=== PATIENT | male | born 1985 | race Caucasian/White ===

== ENCOUNTER 2020-05-20 16:55 | Emergency (ER) | payer OTHER, SELFPAY ==
[2020-05-20 17:24] VITALS: BP 154/87; PULSE 82; RESP 15; TEMP 37.2; O2SAT 99; BMI 30.2
[2020-05-20 18:14] LABS: Bacteria Urine None Seen
--- NOTE | 2020-05-20 18:27 | ED_ITS ---
HPI - Abdominal Pain General Chief Complaint: Abdominal Pain Stated Complaint: ABDOMINAL PAIN, FEELS LIKE ORGAN PAIN Time Seen by Provider: 05/20/20 17:53 Source: patient Mode of arrival: Ambulatory Limitations: no limitations History of Present Illness HPI narrative: 35-year-old male smoker with a history of testicular cancer, in remission for the past 15 years presents with a chief complaint of bilateral flank pain with episodes of sharp pain without obvious provocation or palliation and radiation around his sides. He has had no fever, chills, nausea or vomiting. He denies constipation or diarrhea. He denies dysuria, frequency, or urgency. He has been lifting some heavy objects at work but denies any obvious inciting event otherwise. He now complains of pain that seems to be a bit better with rest and worse with motion. MD complaint: abdominal pain and flank pain Onset (ago): day(s) Pain Consistency: intermittent Location: L flank and R flank Severity: moderate Quality: cramping and stabbing Radiation: LLQ, RLQ, L flank and R flank Relieving factors: rest Exacerbating factors: movement Associated symptoms: denies other symptoms Related Data Previous Rx's Medication Instructions Recorded amoxicillin 875 mg PO BID #20 tab 11/26/16 hydrocodone 5 mg-acetaminophen 325 1 tab PO BID PRN #10 tab 05/20/20 mg tablet ketorolac 10 mg PO Q6H PRN #14 tab 05/20/20 Allergies Allergy/AdvReac Type Severity Reaction Status Date / Time Sulfa (Sulfonamide Allergy Unknown Verified 05/20/20 17:24 Antibiotics) [SULFA (SULFONAMIDE ANTIBIOTICS)] Review of Systems Constitutional Constitutional: Denies chills, Denies fatigue, Denies fever(s), Denies frequent falls, Denies lethargy and Denies weakness Eyes Eyes: Denies change in vision, Denies eye discharge, Denies irritation and Denies loss of vision ENT Ears, Nose, Mouth, and Throat: Denies change in voice, Denies dizziness, Denies neck pain, Denies sore throat and Denies throat swelling Cardiovascular Cardiovascular: Denies chest pain, Denies irregular heart rhythm, Denies lightheadedness, Denies palpitations, Denies dyspnea, Denies dyspnea on exertion and Denies orthopnea Respiratory Respiratory: Denies cough, Denies dyspnea, Denies dyspnea on exertion and Denies wheezing Gastrointestinal Gastrointestinal: Reports abdominal pain, Denies change in bowel habits, Denies diarrhea, Denies nausea and Denies vomiting Genitourinary Genitourinary: Reports flank pain Genitourinary: Reports flank pain Musculoskeletal Musculoskeletal: Denies neck pain and Denies numbness Integumentary/Breasts Skin/Breast: Denies pruritus, Denies erythema, Denies rash and Denies wounds Neurologic Neurologic: Denies behavioral changes, Denies confusion, Denies dizziness, Denies frequent falls, Denies loss of vision, Denies numbness and Denies weakness Psychiatric Psychiatric: Denies anxiety, Denies behavioral changes, Denies confusion, Denies depression, Denies homicidal ideation and Denies suicidal ideation Endocrine Endocrine: Denies fatigue, Denies flushing and Denies palpitations Hematologic/Lymphatic Hematologic/Lymphatic: Denies easy bruising Allergic/Immunologic Allergic/Immunologic: Denies urticaria, Denies throat swelling and Denies wheezing Patient History Medical History Kidney stone Testicular cancer Social History Smoking Status: Current some day smoker alcohol intake: current substance use type: marijuana Smoking Status: Current some day smoker alcohol intake frequency: holidays/special occasions only Substance Use Type: marijuana Exam Narrative Exam Narrative: GENERAL: [35] year old patient appears stated age. Well- nourished, well-developed patient, in mild distress. Anxious, rocking back and forth a bit HEAD: Atraumatic. Normocephalic. EYES: Pupils equal round and reactive. Extraocular motions intact. No scleral icterus. No injection or drainage. ENT: Nose without bleeding, purulent drainage. Throat without erythema, tonsillar hypertrophy or exudate. Airway patent. NECK: Trachea midline. Non tender CARDIOVASCULAR: Regular rate and rhythm without murmurs, gallops, or rubs. RESPIRATORY: Clear to auscultation. Breath sounds equal bilaterally. No wheezes, rales, or rhonchi. GASTROINTESTINAL: Abdomen soft, mild tender to palpation on his sides, nondistended. No rebound, bowel sounds present in all 4 quadrants EXTREMITIES: No edema or joint tenderness. BACK: Nontender without deformity or crepitance. No flank tenderness. NEURO: AOx3. SKIN: No rash or erythema of visible areas Initial Vital Signs Initial Vital Signs: Vital Signs Temperature 99.0 F 05/20/20 17:24 Pulse Rate 82 05/20/20 17:24 Respiratory Rate 15 05/20/20 17:24 Blood Pressure 154/87 H 05/20/20 17:24 Pulse Oximetry 99 05/20/20 17:24 Course Orders Ordered: ED Orders 05/20/20 16:00 Urine Microscopic Stat 05/20/20 18:40 CT kidney ureter bladder (KUB) Stat 05/20/20 18:54 Basic Metabolic Panel Stat Complete Blood Count AUTO DIFF Stat Lipase Stat Discontinued Medications Sodium Chloride (Normal Saline 0.9%) 1,000 mls @ 1,000 mls/hr IV BOLUS ONE Stop: 05/20/20 19:38 Last Infusion: 05/20/20 19:55 Dose: 0 mls/hr Documented by: Admin: 05/20/20 19:03 Dose: 1,000 mls/hr Documented by: DEMETRIO Ketorolac Tromethamine (Ketorolac 60 Mg/2 Ml Vial) 15 mg IV NOW ONE Stop: 05/20/20 18:40 Last Admin: 05/20/20 19:02 Dose: 15 mg Documented by: DEMETRIO Vital Signs Vital signs: Vital Signs - 8 hr 05/20/20 17:24 05/20/20 19:55 Temperature 99.0 F 98.3 F Pulse Rate 82 51 L Respiratory Rate 15 16 Blood Pressure 154/87 H 127/70 Pulse Oximetry 99 99 MDM - Abdominal Pain Lab Data Result diagrams: 05/20/20 18:54 05/20/20 18:54 Labs: Lab Results 05/20/20 05/20/20 05/20/20 Range/Units 16:00 18:54 18:54 WBC 8.0 (4.5-11.0) X10^3/uL RBC 4.93 (4.5-5.9) X10^6/uL Hgb 15.2 (13.5-17.5) g/dL Hct 44.4 (41-53) % MCV 90.0 (80-100) fL MCH 30.8 (26-34) PG MCHC 34.3 (30-36) % RDW 13.2 (11.6-14.8) % Plt Count 209 (150-400) X10^3/uL Neut % (Auto) 55.9 (50-75) % Lymph % (Auto) 32.3 (25-40) % [place] % (Auto) 9.8 (3-14) % Eos % (Auto) 1.0 L (2-4) % Baso % (Auto) 1.0 (0-2) % Neut # (Auto) 4500 (5090-2773) /uL Lymph # (Auto) 2600 (5923-5236) /uL [place] # (Auto) 800 (0-900) /uL Eos # (Auto) 100 (0-450) /uL Baso # (Auto) 100 (0-100) /uL Sodium 139 (137-145) mmol/L Potassium 3.8 (3.4-5.1) mmol/L Chloride 108 H (98-107) mmol/L Carbon Dioxide 27 (22-32) mmol/L BUN 9 (9-20) mg/dL Creatinine 0.59 L (0.66-1.25) mg/dL Estimated GFR > 60.0 (>60) mL/min BUN/Creatinine Ratio 15.3 (6-22) Glucose 92 (70-100) mg/dL Calcium 9.5 (8.4-10.2) mg/dL Lipase 59 (23-300) U/L Urine RBC 0-1/hpf (0-5/HPF) Urine WBC 0-1/hpf (0-5/HPF) Urine Bacteria None seen (None) Ur Culture Indicated? Cult not indicated Point of care testing: Urine Dip Bedside Urine Glucose Negative Bedside Urine Bilirubin - Negative Bedside Urine Ketone - Negative Urine Specific [place] 1.015 Bedside Urine Occult Blood +/- Bedside Urine pH 6.0 Bedside Urine Protein - Negative Bedside Urine Urobilinogen - Negative Bedside Urine Nitrite - Negative Bedside Urine Leukocytes - Negative Esterase Imaging Data CT scan - abdomen/pelvis: Radiologist's Impression: Chon Barragan 35 M [address] [id number] Scan ReportSigned Patient: Chon Barragan LMR#: [id number]: 1985Acct:[id number]/Sex: 35 / MDate of Service: 05/20/20Loc: EDAccession Number: [id number] Procedure: CT kidney ureter bladder (KUB) Ordering Provider: Rito Perez D.O. PROCEDURE: CT KIDNEY URETER BLADDER (KUB) INDICATIONS: flank pain, worsening TECHNIQUE: Noncontrast 5 mm thick sections acquired from the diaphragms to the symphysis. 5 mm thick coronal and sagittal reformats were then performed. For radiation dose reduction, the following was used: automated exposure control, adjustment of mA and/or kV according to patient size. COMPARISON: [facility], CT, KIDNEY/ URETER/BLADDER, 02/09/2015, 16:33. FINDINGS: Image quality: Excellent. Lung bases: Lung bases are clear. Heart size is normal. Urinary system: Both kidneys are normal in size. 3 mm nonobstructing right inferior pole renal calcification.. No hydronephrosis or perinephric fat stranding. Both ureters appear non-dilated throughout their expected courses. Bladder wall thickness is normal; no calcified bladder stones. Other solid organs: Liver is mildly enlarged. Gallbladder is unremarkable . Pancreas is normal in contours. Spleen is normal in size. No adrenal nodules. Peritoneum and bowel: Unenhanced bowel loops demonstrate normal wall thickness and caliber. No free fluid or air. Appendix is within normal limits Nodes and vessels: No retroperitoneal or mesenteric adenopathy by size criteria. Scattered subcentimeter right lower quadrant lymph nodes are present. Aorta and inferior vena cava are normal in caliber. Abdominal wall: No ventral hernias. Pelvis: No free pelvic fluid. No inguinal hernias or adenopathy. Superficial varices are noted within the subcutaneous fat of the lower extremities. Bones: No suspicious bony lesions. No vertebral body compression fractures. IMPRESSION: 1. Nonobstructing inferior pole right renal calculus, new compared to 2014. 2. Appendix is normal with scattered right lower quadrant lymph nodes. Mesenteric adenitis cannot be excluded. Dictated by: Sulema aDmon M.D. on 05/20/2020 at 18:03 Approved by: Sulema Damon M.D. on 05/20/2020 at 18:06 [facility] Narrative Medical decision making narrative: Multiple etiologies for patient's symptoms considered including: [Passed kidney stones versus bowel obstruction versus musculoskeletal versus pyelonephritis versus appendicitis versus mesenteric adenitis] Patient's symptoms improved over duration of stay with above-stated therapies. Findings and discharge diagnosis discussed with patient/family followed by verbalization of understanding Return precautions discussed with patient/family whom verbalize understanding. Discharge Plan Departure Patient Disposition: Home Clinical Impression: Calculus of kidney, Acute mesenteric adenitis Back pain Qualifiers: Back pain location: back pain in other location Chronicity: acute Qualified Code(s): M54.9 - Dorsalgia, unspecified Instructions: DI for Mesenteric Adenitis-Adult Activity Restrictions/Additional Instructions: *You have been diagnosed with [abdominal and back pain, likely musculoskeletal with mesenteric adenitis] *What to do: *Take medications as directed: Sent to [facility] *Follow up with your primary care provider in 2-3 days, call for an appointment. Let them know you were seen in the Emergency Department and that we ask that you be seen in follow up *Return to ER if you should have any new, worsening or concerning symptoms, such as [increasing pain, fever, chills, nausea, vomiting or other bothersome symptoms] Prescriptions: New ketorolac 10 mg tablet 10 mg PO Q6H PRN (Reason: pain) Qty: 14 RF: 0 No Action hydrocodone-acetaminophen [[place]] 5-325 mg tablet 1 tab PO BID PRN (Reason: pain) Qty: 10 RF: 0 amoxicillin 875 MG tablet 875 mg PO BID Qty: 20 RF: 0
[2020-05-20 18:39] LABS: Culture Indicated Urine Cult Not Indicated; RBC Urine 0-1/HPF (0-5/HPF); WBC Urine 0-1/HPF (0-5/HPF)
--- NOTE | 2020-05-20 18:40 | DI.CT.S_ITS ---
PROCEDURE: CT KIDNEY URETER BLADDER (KUB) INDICATIONS: flank pain, worsening TECHNIQUE: Noncontrast 5 mm thick sections acquired from the diaphragms to the symphysis. 5 mm thick coronal and sagittal reformats were then performed. For radiation dose reduction, the following was used: automated exposure control, adjustment of mA and/or kV according to patient size. COMPARISON: [facility], CT, KIDNEY/ URETER/BLADDER, 02/09/2015, 16:33. FINDINGS: Image quality: Excellent. Lung bases: Lung bases are clear. Heart size is normal. Urinary system: Both kidneys are normal in size. 3 mm nonobstructing right inferior pole renal calcification.. No hydronephrosis or perinephric fat stranding. Both ureters appear non-dilated throughout their expected courses. Bladder wall thickness is normal; no calcified bladder stones. Other solid organs: Liver is mildly enlarged. Gallbladder is unremarkable . Pancreas is normal in contours. Spleen is normal in size. No adrenal nodules. Peritoneum and bowel: Unenhanced bowel loops demonstrate normal wall thickness and caliber. No free fluid or air. Appendix is within normal limits Nodes and vessels: No retroperitoneal or mesenteric adenopathy by size criteria. Scattered subcentimeter right lower quadrant lymph nodes are present. Aorta and inferior vena cava are normal in caliber. Abdominal wall: No ventral hernias. Pelvis: No free pelvic fluid. No inguinal hernias or adenopathy. Superficial varices are noted within the subcutaneous fat of the lower extremities. Bones: No suspicious bony lesions. No vertebral body compression fractures. IMPRESSION: 1. Nonobstructing inferior pole right renal calculus, new compared to 2014. 2. Appendix is normal with scattered right lower quadrant lymph nodes. Mesenteric adenitis cannot be excluded. Dictated by: Sulema Damon M.D. on 05/20/2020 at 18:03 Approved by: Sulema Damon M.D. on 05/20/2020 at 18:06
[2020-05-20] MEDS: KETOROLAC 60 MG/2 ML VIAL 15 MG IV (19:02)
[2020-05-20 19:03] LABS: Add Manual Diff / Slide Review NO; Basophils Absolute Auto 100 /uL (0-100); Eosinophils Absolute Auto 100 /uL (0-450); Hematocrit 44.4 % (41-53); Hemoglobin 15.2 g/dL (13.5-17.5); Lymphocytes Absolute Auto 2600 /uL (1100-4500); Lymphocytes Percent Auto 32.3 % (25-40); Mean Corpuscular HGB Conc 34.3 % (30-36); Mean Corpuscular Hemoglobin 30.8 PG (26-34); Monocytes Absolute Auto 800 /uL (0-900); Monocytes Percent Auto 9.8 % (3-14); Neutrophils Absolute Auto 4500 /uL (1500-7000); Neutrophils Percent Auto 55.9 % (50-75); Platelet Count 209 X10^3/uL (150-400); Red Blood Cell Count 4.93 X10^6/uL (4.5-5.9); Red Cell Distribution Width 13.2 % (11.6-14.8)
[2020-05-20] MEDS: SODIUM CHLORIDE 0.9% 1,000 ML 1000 ML IV (19:03)
[2020-05-20 19:19] LABS: BUN Creatinine Ratio 15.3 (6-22); Blood Urea Nitrogen 9 mg/dL (9-20); Calcium 9.5 mg/dL (8.4-10.2); Carbon Dioxide 27 mmol/L (22-32); Chloride 108 mmol/L (98-107); Estimated Glomerular Filt Rate > 60.0 mL/min (>60); Glucose 92 mg/dL (70-100); HEMOLYSIS < 15 (0-50); Lipase 59 U/L (23-300); Potassium 3.8 mmol/L (3.4-5.1); Sodium 139 mmol/L (137-145)
[2020-05-20 19:55] VITALS: BP 127/70; PULSE 51; RESP 16; TEMP 36.8; O2SAT 99
== END 2020-05-20 19:55 | disposition home or self-care (01) ==
PROVIDERS: Emergency Provider Emergency Medicine
DX: I88.0 Nonspecific mesenteric lymphadenitis (principal); N20.0 Calculus of kidney; M54.9 Dorsalgia, unspecified; Z85.47 Personal history of malignant neoplasm of testis
CPT/HCPCS: 74176; 80048; 81003; 81015; 83690; 85025; 96361; 96374; 99283; 99284; J1885

== ENCOUNTER 2020-05-30 07:04 | Emergency (ER) | payer OTHER, SELFPAY ==
[2020-05-30] VITALS (10 sets, daily range): BP systolic 114–132; BP diastolic 66–79; PULSE 63–77; RESP 12–23; TEMP 36.9; O2SAT 96–99; BMI 30.3
--- NOTE | 2020-05-30 07:28 | ED_ITS ---
HPI - Neuro Symptoms/Deficit General Chief Complaint: Neuro Symptoms/Deficit Stated Complaint: right side body numb when he woke up Time Seen by Provider: 05/30/20 07:15 Source: patient Mode of arrival: Ambulatory Limitations: no limitations History of Present Illness HPI Narrative: Patient is a 35-year-old male history of testicular cancer in severe anxiety presenting with right-sided body tingling. He says he woke up at 3:00 a.m. and was feeling fine he woke up again at 5:45 a.m. and noticed that he had numbness and tingling on his right side face arm and leg. He now no longer has the tingling on the right leg. He did not notice any weakness no speech difficulty no vision changes no headache chest pain palpitations or fevers. No prior history of CVA. Onset (ago): hour(s) Location: right face, right arm and right leg Severity: mild Related Data Previous Rx's Medication Instructions Recorded amoxicillin 875 mg PO BID #20 tab 11/26/16 hydrocodone 5 mg-acetaminophen 325 1 tab PO BID PRN #10 tab 05/20/20 mg tablet ketorolac 10 mg PO Q6H PRN #14 tab 05/20/20 Allergies Allergy/AdvReac Type Severity Reaction Status Date / Time Sulfa (Sulfonamide Allergy Unknown Verified 05/30/20 07:25 Antibiotics) [SULFA (SULFONAMIDE ANTIBIOTICS)] Review of Systems Review of Systems Narrative: GENERAL: Denies chills, fatigue, malaise, fever, sweats, travel HEENT: Denies sinus pain, ear pain, sore throat, difficulty swallowing, neck pain RESPIRATORY: Denies dyspnea, cough, wheezing, hemoptysis, sputum. CARDIOVASCULAR: Denies chest pain, palpitations, orthopnea, edema GASTROINTESTINAL: Denies nausea, vomiting, abdominal pain, diarrhea, constipation, melena. : Denies dysuria, frequency, incontinence, hematuria, urinary retention, flank pain. MUSCULOSKELETAL: Denies weakness, joint pain, or bony pain SKIN: No rash, no erythema, no pruritus NEUROLOGIC: See HPI PSYCHIATRIC: No concerning psychosocial issues. 12 point review of systems is negative except for those stated above and HPI Patient History Medical History Kidney stone Testicular cancer Social History (Reviewed 05/30/20 @ 07:30 by VINAYAK Thrasher Smoking Status: Current some day smoker alcohol intake: current substance use type: marijuana Smoking Status: Current some day smoker alcohol intake frequency: holidays/special occasions only Substance Use Type: marijuana Exam Narrative Exam Narrative: GENERAL: Well-appearing, well-nourished and in no acute distress. HEENT: Head atraumatic,EOMI, pupils reactive, face symmetric, moist mucous membranes CARDIOVASCULAR: Regular rate and rhythm without murmurs, rubs or gallops. RESPIRATORY: Breath sounds equal bilaterally, no wheezes rales or rhonchi. ABDOMEN: Soft, nontender. Normoactive bowel sounds all 4 quadrants. No guarding or rebound. EXTREMITIES: Normal range of motion, no clubbing or edema. Neurovascularly intact NEUROLOGICAL: Alert and oriented x4.Normal gait and speech. Cranial nerves II through XII grossly intact. Good gzukmi-wc-xbpr, good zste-[id number], strength equal bilaterally, no dysarthria or aphasia, sensation in tact to soft touch is decreased on right arm and right face, no visual changes, no facial droop SKIN: Warm, dry, no laceration, no petechiae, no rashes or lesions. Initial Vital Signs Initial Vital Signs: Vital Signs Temperature 98.4 F 05/30/20 07:05 Pulse Rate 76 05/30/20 07:05 Respiratory Rate 16 05/30/20 07:05 Blood Pressure 132/79 05/30/20 07:05 Pulse Oximetry 99 05/30/20 07:05 Scores NIH Stroke Scale Level of Conciousness: Alert, keenly responsive Ask month/age: Answers both questions correctly. Open/close eyes, close hand: Performs both tasks correctly Best gaze horizontal: Normal Visual wilson: No visual loss Facial palsy: Normal symetrical movement Left arm drift: No drift for full 10 sec Right arm drift: No drift for full 10 sec Left leg drift: No drift for full 5 sec Right leg drift: No drift for full 5 sec Limb ataxia: Absent Sensory on face/arms/legs: Mild to moderate sensory loss, can tell touch Best language: No aphasia, normal Dysarthria: Normal Extinction or inattention: No abnormality Total NIH Stroke scale score: 1 Course Orders Ordered: ED Orders 05/30/20 07:26 CT head/brain wo con Stat EKG-12 Lead Stat 05/30/20 07:27 CT angio head and neck Stat 05/30/20 07:41 Complete Blood Count AUTO DIFF Stat Comprehensive Metabolic Panel Stat Partial Thromboplastin Time Stat Prothrombin Time INR Stat Troponin & CK Cardiac Panel Stat 05/30/20 07:51 Urine Drug Screen, Rapid Stat Urine Microscopic Stat 05/30/20 08:53 MR stroke Stat Vital Signs Vital signs: Vital Signs - 8 hr 05/30/20 07:05 05/30/20 07:13 05/30/20 07:14 Temperature 98.4 F Pulse Rate 76 77 76 Respiratory Rate 16 12 22 Blood Pressure 132/79 132/79 Pulse Oximetry 99 99 99 05/30/20 07:30 05/30/20 07:31 05/30/20 08:00 Temperature Pulse Rate 75 74 75 Respiratory Rate 23 22 Blood Pressure 128/73 Pulse Oximetry 97 98 98 05/30/20 08:30 05/30/20 09:00 05/30/20 10:01 Temperature Pulse Rate 71 63 67 Respiratory Rate 16 14 Blood Pressure 114/66 114/70 Pulse Oximetry 98 97 98 05/30/20 10:30 Temperature Pulse Rate 69 Respiratory Rate 14 Blood Pressure Pulse Oximetry 96 MDM - Neuro Symptoms/Deficit Lab Data Attestation: I reviewed the patient's lab results. Result diagrams: 05/30/20 07:41 05/30/20 07:41 Labs: Lab Results 05/30/20 05/30/20 05/30/20 Range/Units 07:41 07:41 07:41 WBC 5.5 (4.5-11.0) X10^3/uL RBC 4.94 (4.5-5.9) X10^6/uL Hgb 15.2 (13.5-17.5) g/dL Hct 44.4 (41-53) % MCV 89.8 (80-100) fL MCH 30.8 (26-34) PG MCHC 34.3 (30-36) % RDW 13.3 (11.6-14.8) % Plt Count 200 (150-400) X10^3/uL Neut % (Auto) 63.3 (50-75) % Lymph % (Auto) 23.0 L (25-40) % Callahan % (Auto) 11.8 (3-14) % Eos % (Auto) 0.9 L (2-4) % Baso % (Auto) 1.0 (0-2) % Neut # (Auto) 3500 (7606-1436) /uL Lymph # (Auto) 1300 (6435-2100) /uL Callahan # (Auto) 600 (0-900) /uL Eos # (Auto) 100 (0-450) /uL Baso # (Auto) 100 (0-100) /uL PT 12.9 H (10.1-12.7) SECONDS INR 1.1 (0.9-1.3) APTT 37 H (26.4-36.2) SECONDS Sodium 137 (137-145) mmol/L Potassium 4.1 (3.4-5.1) mmol/L Chloride 104 (98-107) mmol/L Carbon Dioxide 22 (22-32) mmol/L BUN 12 (9-20) mg/dL Creatinine 0.72 (0.66-1.25) mg/dL Estimated GFR > 60.0 (>60) mL/min BUN/Creatinine Ratio 16.7 (6-22) Glucose 96 (70-100) mg/dL Calcium 9.4 (8.4-10.2) mg/dL Total Bilirubin 0.9 (0.2-1.3) mg/dL AST 28 (17-59) IU/L ALT 27 (<50) IU/L Alkaline Phosphatase 52 (38-126) U/L Total Creatine Kinase 165 (55-170) U/L CK-MB (CK-2) 0.85 (<2.37) ng/mL CK-MB (CK-2) Rel Index 0.5 L (1.5-5.0) % Troponin I < 0.012 (0.01-0.034) ng/mL Total Protein 7.7 (6.3-8.2) g/dL Albumin 4.8 (3.5-5.0) g/dL Globulin 2.9 (1.7-4.1) g/dL Albumin/Globulin Ratio 1.7 (1.0-2.8) Urine RBC (0-5/HPF) Urine WBC (0-5/HPF) Urine Bacteria (None) Urine Mucus (Negative) Ur Culture Indicated? U Opiates 300ng/mL cut (Negative) Ur Oxycodone Screen (Negative) Urine Methadone Screen (Negative) Ur Barbiturates Screen (Negative) U Tricyclic Antidepress (Negative) Ur Phencyclidine Scrn (Negative) Ur Amphetamines Screen (Negative) U Methamphetamines Scrn (Negative) Ur MDMA Scrn (Ecstasy) (Negative) U Benzodiazepines Scrn (Negative) Urine Cocaine Screen (Negative) U Marijuana (THC) Screen (Negative) 05/30/20 05/30/20 Range/Units 07:51 07:51 WBC (4.5-11.0) X10^3/uL RBC (4.5-5.9) X10^6/uL Hgb (13.5-17.5) g/dL Hct (41-53) % MCV (80-100) fL MCH (26-34) PG MCHC (30-36) % RDW (11.6-14.8) % Plt Count (150-400) X10^3/uL Neut % (Auto) (50-75) % Lymph % (Auto) (25-40) % Callahan % (Auto) (3-14) % Eos % (Auto) (2-4) % Baso % (Auto) (0-2) % Neut # (Auto) (8168-2105) /uL Lymph # (Auto) (0740-8326) /uL Callahan # (Auto) (0-900) /uL Eos # (Auto) (0-450) /uL Baso # (Auto) (0-100) /uL PT (10.1-12.7) SECONDS INR (0.9-1.3) APTT (26.4-36.2) SECONDS Sodium (137-145) mmol/L Potassium (3.4-5.1) mmol/L Chloride (98-107) mmol/L Carbon Dioxide (22-32) mmol/L BUN (9-20) mg/dL Creatinine (0.66-1.25) mg/dL Estimated GFR (>60) mL/min BUN/Creatinine Ratio (6-22) Glucose (70-100) mg/dL Calcium (8.4-10.2) mg/dL Total Bilirubin (0.2-1.3) mg/dL AST (17-59) IU/L ALT (<50) IU/L Alkaline Phosphatase (38-126) U/L Total Creatine Kinase (55-170) U/L CK-MB (CK-2) (<2.37) ng/mL CK-MB (CK-2) Rel Index (1.5-5.0) % Troponin I (0.01-0.034) ng/mL Total Protein (6.3-8.2) g/dL Albumin (3.5-5.0) g/dL Globulin (1.7-4.1) g/dL Albumin/Globulin Ratio (1.0-2.8) Urine RBC 5-10/hpf H (0-5/HPF) Urine WBC None seen (0-5/HPF) Urine Bacteria None seen (None) Urine Mucus 3+ H (Negative) Ur Culture Indicated? Cult not indicated U Opiates 300ng/mL cut Negative (Negative) Ur Oxycodone Screen Negative (Negative) Urine Methadone Screen Negative (Negative) Ur Barbiturates Screen Negative (Negative) U Tricyclic Antidepress Negative (Negative) Ur Phencyclidine Scrn Negative (Negative) Ur Amphetamines Screen Negative (Negative) U Methamphetamines Scrn Negative (Negative) Ur MDMA Scrn (Ecstasy) Negative (Negative) U Benzodiazepines Scrn Negative (Negative) Urine Cocaine Screen Negative (Negative) U Marijuana (THC) Screen Negative (Negative) Urine Dip Bedside Urine Glucose Negative Bedside Urine Bilirubin - Negative Bedside Urine Ketone +++ 80 Urine Specific [place] 1.030 Bedside Urine Occult Blood + Bedside Urine pH 6.0 Bedside Urine Protein +/- 15 Bedside Urine Urobilinogen - Negative Bedside Urine Nitrite - Negative Bedside Urine Leukocytes - Negative Esterase Imaging Data CT scan - head: Radiologist's Impression: PROCEDURE: CT HEAD/BRAIN WO CON INDICATIONS: tingling right side TECHNIQUE: Noncontrast 4.5 mm thick angled axial sections acquired from the foramen magnum to the vertex, with coronal and sagittal reformats. For radiation dose reduction, the following was used: automated exposure control, adjustment of mA and/or kV according to patient size. COMPARISON: None. FINDINGS: Image quality: Excellent. CSF spaces: Basal cisterns are patent. No extra-axial fluid collections. Ventricles are normal in size and shape. Brain: No midline shift. No intracranial masses or hemorrhage. Jerez-white matter interface is normal. Skull and face: Calvarium and visualized facial bones are intact, without suspicious lesions. Sinuses: Visualized sinuses and mastoids are clear. IMPRESSION: CT head without acute intracranial abnormalities. No mass or mass effect visualized. Dictated by: Donovan Nixon M.D. on 05/30/2020 at 8:08 CTA - brain/neck: Radiologist's Impression: PROCEDURE: CT ANGIO HEAD AND NECK INDICATIONS: tingling right side TECHNIQUE: After the administration of intravenous contrast, 1 mm thick sections acquired from the aortic arch through the [place]. Post-contrast 4.5 mm thick sections then re-acquired from the foramen magnum to the vertex. 3-dimensional erxeels-xidtjsdcz-lgqzbveatk (MIP) and/or volume rendering reformats were acquired of the central intracranial vasculature and neck separately. COMPARISON: [facility], CT, CT HEAD/BRAIN WO CON, 05/30/2020, 7:32. FINDINGS: Image quality: Excellent. BRAIN: CSF spaces: Ventricles are normal in size and shape. Basal cisterns are patent. No extra-axial fluid collections. Brain: No midline shift. No intracranial bleeds or masses. Jerez-white matter interface appears intact. Skull and face: Calvarium and facial bones appear intact, without suspicious lesions. Orbits appear normal. Sinuses: Sinuses and mastoids are clear. HEAD CT ANGIOGRAPHY: Anterior circulation: Intracranial internal carotid arteries are normal in size and flow. The flow within the paired anterior cerebral arteries is normal and symmetric. The flow within the middle cerebral arteries is normal and symmetric. The anterior communicating artery is seen. No aneurysms are seen. Posterior circulation: Visualized portions of the vertebral arteries demonstrate normal caliber, and join to form a normal appearing basilar artery. Left vertebral artery is dominant. The right vertebral is somewhat Flow within the posterior cerebral arteries is normal and symmetric. No aneurysms are seen. NECK CT ANGIOGRAPHY: Carotid system: The great vessels demonstrate a conventional anatomy as they arise from the aortic arch. The origins of the common carotid arteries appear patent. The common carotid arteries demonstrate normal caliber and courses. The bifurcation regions are both widely patent. The internal carotid arteries demonstrate normal calibers and courses. Posterior circulation: The origins of the vertebral arteries both appear widely patent. The right vertebral artery is somewhat diminutive. The left vertebral is The mo re superior extracranial portions of both vertebral arteries also demonstrate normal courses and calibers. They join to form a normal appearing basilar artery. Soft tissues: Visualized neck soft tissues demonstrate no suspicious abnormalities. Bones: No suspicious bony lesions. Visualized cervical spine appears normally aligned. IMPRESSION: 1. No evidence acute stroke, hemorrhage, mass. 2. Unremarkable CTA head. 3. Unremarkable CTA neck. Comment: Findings were discussed with Dr. Browne at the time of study dictation on 05/30/2020 0742 hours [place] time. Any quantitative measurements of stenosis were performed using NASCET criteria. Dictated by: Lm Saleh M.D. on 05/30/2020 at 7:36 MR stroke: Radiologist's Impression: PROCEDURE: MR STROKE Pre- and post-contrast brain MRI, non-contrast brain MR angiogram, pre- and postcontrast neck MR angiogram INDICATIONS: right arm tingling TECHNIQUE: Brain: Noncontrast axial T1 spin echo, axial T2 fast spin echo, sagittal and axial FLAIR, coronal T2 fast spin echo, axial gradient echo, axial diffusion and ADC through the brain. After the administration of contrast, axial 3D VIBE of the cranial vasculature and brain. Brain MRA: Non-contrast 3-D time of flight MR angiogram, with multiple hyvdhgw-qjqmfnzyh-elfalkmagk (MIP) reformats performed. Neck MRA: Axial and sagittal TruFISP through the neck. Coronal dynamic MR angiogram during administration of contrast in the arterial and venous phases, with 3- dimenstional fmgblea-xscvgjsqu-dgrvtplulk (MIP) reformats constructed from subtraction images. COMPARISON: None. FINDINGS: Image quality: Excellent. BRAIN: CSF spaces: Ventricles are normal in size and shape. Basal cisterns are patent. No extra-axial fluid collections. Brain: No intracranial bleeds or mass effects. Jerez-white matter interface is normal. Diffusion weighted images show no acute ischemic insults. Brainstem appears normal. Normal intravascular flow voids are present. No abnormal intracranial enhancement. Skull and face: Calvarial marrow signal is normal. Orbits appear normal. Sinuses: Sinuses and mastoids are clear. BRAIN MR ANGIOGRAM: Anterior circulation: Intracranial internal carotid arteries are normal in size and enhancement. The flow within the paired anterior cerebral arteries is normal and symmetric. The flow within the middle cerebral arteries is normal and symmetric. The anterior communicating artery is seen. No stenoses, occlusions, or aneurysms. Posterior circulation: The visualized portions of the vertebral arteries demonstrate normal caliber, and join to form a normal appearing basilar artery. The right vertebral artery is mildly diminutive. The left vertebral artery is The flow within the posterior cerebral arteries is normal and symmetric. No stenoses, occlusions, or aneurysms. NECK MR ANGIOGRAM: Carotids: Great vessels demonstrate a conventional anatomy as they arise from the aortic arch. The origins of the common carotid arteries appear patent. The calibers and courses of both common carotid arteries are normal. The bifurcation regions appear normal bilaterally. The internal carotid arteries demonstrate normal course and caliber. Posterior circulation: The origins of the vertebral arteries appear patent. More superior portions of both vertebral arteries demonstrate normal course and caliber, and join to form a normal appearing basilar artery. The right vertebral artery is somewhat diminutive. The left vertebral artery is dominant. Miscellaneous: Subclavian arteries appear patent. Pre-contrast images through the neck show no soft tissue abnormalities. IMPRESSION: BRAIN MRI: Unremarkable brain MRI. No evidence acute stroke, hemorrhage, or mass. Normal appearing brain parenchyma. BRAIN MR ANGIOGRAM: Unremarkable. No stenosis, aneurysm, or occlusion. NECK MR ANGIOGRAM: Unremarkable. Widely patent internal carotid arteries. Dictated by: Lm Saleh M.D. on 05/30/2020 at 9:26 ECG Data Attestation: I personally reviewed and interpreted this ECG as follows: Prior ECG tracings: available for review Interpretation: Normal sinus rhythm rate [address] changes T-wave inversions no priors to compare MDM Narrative Medical decision making narrative: Patient does have some right-sided soft touch sensation deficit. It does seem to be improving he therefore is not a candidate for tPA. His also not a candidate because of last known well was at 3:00 a.m. in the and he is outside the window. He has no large vessel occlusion symptoms or identified on CT a. patient MRI does not show any acute CVA. Unclear what is causing his symptoms he has severe anxiety. He was quite relieved after the noncontrast head CT did not show any tumors in his brain. He says that due to severe anxiety as he has not been able to sleep. He has a PCP appointment is but not until June. He overall is much relieved that nothing was found. Discussed with him return to ED if symptoms were to worsen Discharge Plan Departure Patient Disposition: Home Clinical Impression: Arm paresthesia, right Instructions: DI for Numbness/Tingling Activity Restrictions/Additional Instructions: *You have been diagnosed with paresthesias *What to do: At this time MRI CT scans are all overall reassuring no sign of stroke. Possible related to anxiety *Continue to take medications as directed *Follow up with your primary care provider in 2-3 days *Return to ER if you should have increasing weakness numbness tingling or any new, worsening or concerning symptoms Prescriptions: No Action hydrocodone-acetaminophen [[place]] 5-325 mg tablet 1 tab PO BID PRN (Reason: pain) Qty: 10 RF: 0 amoxicillin 875 MG tablet 875 mg PO BID Qty: 20 RF: 0 ketorolac 10 mg tablet 10 mg PO Q6H PRN (Reason: pain) Qty: 14 RF: 0 Referrals: López Rivera MD [Primary Care Provider] -
[2020-05-30 07:54] LABS: Add Manual Diff / Slide Review NO; Basophils Absolute Auto 100 /uL (0-100); Eosinophils Absolute Auto 100 /uL (0-450); Eosinophils Percent Auto 0.9 % (2-4); Hematocrit 44.4 % (41-53); Hemoglobin 15.2 g/dL (13.5-17.5); Lymphocytes Absolute Auto 1300 /uL (1100-4500); Mean Corpuscular HGB Conc 34.3 % (30-36); Mean Corpuscular Hemoglobin 30.8 PG (26-34); Mean Corpuscular Volume 89.8 fL (80-100); Monocytes Absolute Auto 600 /uL (0-900); Monocytes Percent Auto 11.8 % (3-14); Neutrophils Absolute Auto 3500 /uL (1500-7000); Neutrophils Percent Auto 63.3 % (50-75); Platelet Count 200 X10^3/uL (150-400); Red Blood Cell Count 4.94 X10^6/uL (4.5-5.9); Red Cell Distribution Width 13.3 % (11.6-14.8); White Blood Cell Count 5.5 X10^3/uL (4.5-11.0)
[2020-05-30 07:58] LABS: Bacteria Urine None Seen; WBC Urine None Seen (0-5/HPF)
[2020-05-30 08:02] LABS: INR 1.1 (0.9-1.3); Prothrombin Time 12.9 SECONDS (10.1-12.7)
[2020-05-30 08:05] LABS: Culture Indicated Urine Cult Not Indicated; Mucus Urine 3+ (Negative); RBC Urine 5-10/HPF (0-5/HPF)
[2020-05-30 08:05] LABS: PTT Partial Thromboplastin Tim 37 SECONDS (26.4-36.2)
[2020-05-30 08:06] LABS: Alanine Aminotransferase 27 IU/L (<50); Albumin 4.8 g/dL (3.5-5.0); Albumin Globulin Ratio 1.7 (1.0-2.8); Alkaline Phosphatase 52 U/L (38-126); Aspartate Aminotransferase 28 IU/L (17-59); BUN Creatinine Ratio 16.7 (6-22); Bilirubin Total 0.9 mg/dL (0.2-1.3); Blood Urea Nitrogen 12 mg/dL (9-20); Calcium 9.4 mg/dL (8.4-10.2); Carbon Dioxide 22 mmol/L (22-32); Chloride 104 mmol/L (98-107); Creatine Kinase 165 U/L (55-170); Estimated Glomerular Filt Rate > 60.0 mL/min (>60); Globulin 2.9 g/dL (1.7-4.1); Glucose 96 mg/dL (70-100); HEMOLYSIS < 15 (0-50); Potassium 4.1 mmol/L (3.4-5.1); Sodium 137 mmol/L (137-145); Total Protein 7.7 g/dL (6.3-8.2)
[2020-05-30 08:18] LABS: Troponin I < 0.012 ng/mL (0.01-0.034)
[2020-05-30 08:22] LABS: CKMB % Relative Index 0.5 % (1.5-5.0); Creatine Kinase MB 0.85 ng/mL (<2.37)
--- NOTE | 2020-05-30 08:53 | DI.MRI.S_ITS ---
PROCEDURE: MR STROKE Pre- and post-contrast brain MRI, non-contrast brain MR angiogram, pre- and postcontrast neck MR angiogram INDICATIONS: right arm tingling TECHNIQUE: Brain: Noncontrast axial T1 spin echo, axial T2 fast spin echo, sagittal and axial FLAIR, coronal T2 fast spin echo, axial gradient echo, axial diffusion and ADC through the brain. After the administration of contrast, axial 3D VIBE of the cranial vasculature and brain. Brain MRA: Non-contrast 3-D time of flight MR angiogram, with multiple wrxxisx-bvlfnbyuh-zwvsvshrad (MIP) reformats performed. Neck MRA: Axial and sagittal TruFISP through the neck. Coronal dynamic MR angiogram during administration of contrast in the arterial and venous phases, with 3-dimenstional onagsrm-znlxensue-zcwgymtwvn (MIP) reformats constructed from subtraction images. COMPARISON: None. FINDINGS: Image quality: Excellent. BRAIN: CSF spaces: Ventricles are normal in size and shape. Basal cisterns are patent. No extra-axial fluid collections. Brain: No intracranial bleeds or mass effects. Jerez-white matter interface is normal. Diffusion weighted images show no acute ischemic insults. Brainstem appears normal. Normal intravascular flow voids are present. No abnormal intracranial enhancement. Skull and face: Calvarial marrow signal is normal. Orbits appear normal. Sinuses: Sinuses and mastoids are clear. BRAIN MR ANGIOGRAM: Anterior circulation: Intracranial internal carotid arteries are normal in size and enhancement. The flow within the paired anterior cerebral arteries is normal and symmetric. The flow within the middle cerebral arteries is normal and symmetric. The anterior communicating artery is seen. No stenoses, occlusions, or aneurysms. Posterior circulation: The visualized portions of the vertebral arteries demonstrate normal caliber, and join to form a normal appearing basilar artery. The right vertebral artery is mildly diminutive. The left vertebral artery is The flow within the posterior cerebral arteries is normal and symmetric. No stenoses, occlusions, or aneurysms. NECK MR ANGIOGRAM: Carotids: Great vessels demonstrate a conventional anatomy as they arise from the aortic arch. The origins of the common carotid arteries appear patent. The calibers and courses of both common carotid arteries are normal. The bifurcation regions appear normal bilaterally. The internal carotid arteries demonstrate normal course and caliber. Posterior circulation: The origins of the vertebral arteries appear patent. More superior portions of both vertebral arteries demonstrate normal course and caliber, and join to form a normal appearing basilar artery. The right vertebral artery is somewhat diminutive. The left vertebral artery is dominant. Miscellaneous: Subclavian arteries appear patent. Pre-contrast images through the neck show no soft tissue abnormalities. IMPRESSION: BRAIN MRI: Unremarkable brain MRI. No evidence acute stroke, hemorrhage, or mass. Normal appearing brain parenchyma. BRAIN MR ANGIOGRAM: Unremarkable. No stenosis, aneurysm, or occlusion. NECK MR ANGIOGRAM: Unremarkable. Widely patent internal carotid arteries. Dictated by: Lm Saleh M.D. on 05/30/2020 at 9:26 Approved by: Lm Saleh M.D. on 05/30/2020 at 9:31
[2020-05-30 09:20] LABS: UR Morphine/Opiate cutoff 300 Negative (Negative); Ur Creatinine Normal (Normal); Ur Specific Gravity Normal (Normal); Urine Amphetamines Negative (Negative); Urine Barbiturates Negative (Negative); Urine Benzodiazepines Negative (Negative); Urine Cocaine Negative (Negative); Urine MDMA Negative (Negative); Urine Methadone Negative (Negative); Urine Methamphetamines Negative (Negative); Urine Oxycodone Negative (Negative); Urine Phencyclidine Negative (Negative); Urine Tetrahydrocannabinol Negative (Negative); Urine Tricyclic Antidepressant Negative (Negative); Urine pH Normal (Normal)
== END 2020-05-30 10:58 | disposition home or self-care (01) ==
PROVIDERS: Emergency Provider Emergency Medicine; PCP Family Medicine
DX: R20.2 Paresthesia of skin (principal); R20.0 Anesthesia of skin; R07.9 Chest pain, unspecified
CPT/HCPCS: 36415; 70450; 70496; 70498; 70548; 70553; 80053; 80305; 81003; 81015; 82550; 82553; 84484; 85025; 85610; 85730; 93005; 99284; A9579; Q9967

== ENCOUNTER → 2020-07-17 07:10 | Outpatient (CLI) | payer OTHER, SELFPAY ==
--- NOTE | 2020-07-17 07:13 | DI.US.S_ITS ---
PROCEDURE: US EXTREMITY NONVASC LOWER RT INDICATIONS: RIGHT LATERAL KNEE LUMPS TECHNIQUE: Real-time scanning was performed of the right lower extremity, at the area of palpable abnormality, with image documentation. COMPARISON: None. FINDINGS: Superficial thrombophlebitis of varicosities present within the lateral aspect of the right knee soft tissues corresponding to the palpable abnormalities. IMPRESSION: Superficial thrombophlebitis of varicosities corresponding to the palpable abnormalities. Dictated by: Andrea Mercado Zachary Interpreted: Lm Saleh MD on 07/17/2020 at 8:30 Approved by: Lm Saleh M.D. on 07/17/2020 at 10:24
== END ==
PROVIDERS: PCP Internal Medicine; Referring Provider Internal Medicine Hematology & Oncology; Visit Provider Urology
DX: I80.01 Phlebitis and thrombophlebitis of superficial vessels of right lower extremity (principal); R22.41 Localized swelling, mass and lump, right lower limb; R63.4 Abnormal weight loss; Z87.438 Personal history of other diseases of male genital organs
CPT/HCPCS: 76882

== ENCOUNTER → 2020-09-01 11:58 | Outpatient (CLI) | payer OTHER, SELFPAY ==
--- NOTE | 2020-09-01 12:00 | DI.CT.S_ITS ---
PROCEDURE: CT ABDOMEN PELVIS W CON INDICATIONS: testicular cancer, now rising AFP TECHNIQUE: After the administration of intravenous contrast, 5 mm thick sections acquired from the diaphragm to the symphysis. 5 mm coronal and sagittal reformats were acquired. For radiation dose reduction, the following was used: automated exposure control, adjustment of mA and/or kV according to patient size. COMPARISON: [facility], CT, KIDNEY/ URETER/BLADDER, 02/09/2015, 16:33. [facility], CT, CT KIDNEY URETER BLADDER (KUB), 05/20/2020, 18:42. FINDINGS: Image quality: Excellent. ABDOMEN: Lung bases: Lung bases are clear. Heart size is normal. Solid organs: Liver is normal in size and enhancement. Gallbladder is normal. Biliary system is non dilated. Pancreas enhances normally. Spleen is normal in size and enhancement. No adrenal nodules. Kidneys demonstrate normal size and enhancement, without hydronephrosis. Nonobstructing calcification in the right upper pole is seen. Peritoneum and bowel: Bowel loops demonstrate normal wall thickness and caliber. No free fluid or air. Nodes and vessels: Surgical clips are seen in the retroperitoneum consistent with prior lymph node resection. No retroperitoneal or mesenteric adenopathy by size criteria. Aorta and inferior vena cava are normal in size. Miscellaneous: No ventral hernias. PELVIS: Genitourinary: Bladder wall thickness is normal. Miscellaneous: No inguinal hernias or adenopathy. Bones: No suspicious bony lesions. No vertebral body compression fractures. IMPRESSION: No evidence of adenopathy or metastatic disease. Dictated by: Elder Crawford M.D. on 09/01/2020 at 14:41 Approved by: Elder Crawford M.D. on 09/01/2020 at 14:51
== END ==
PROVIDERS: PCP Internal Medicine; Referring Provider Internal Medicine Hematology & Oncology; Visit Provider Internal Medicine Hematology & Oncology
DX: C62.90 Malignant neoplasm of unspecified testis, unspecified whether descended or undescended (principal)
CPT/HCPCS: 74177; Q9967

== ENCOUNTER 2021-01-20 12:49 | Emergency (ER) | payer OTHER, SELFPAY ==
[2021-01-20 13:16] VITALS: BP 124/75; PULSE 81; RESP 22; TEMP 36.6; O2SAT 100
--- NOTE | 2021-01-20 13:18 | DI.RAD.S_ITS ---
PROCEDURE: XR KNEE RT 1TO2V INDICATIONS: Fall, unable to bear weight TECHNIQUE: 2 views of the knee were acquired. COMPARISON: None. FINDINGS: Bones: Mildly comminuted , depressed fracture of the lateral tibial plateau. The remaining visualized osseous structures appear maintained. Small superior patellar enthesophyte. Soft tissues: Moderate joint effusion with lipohemarthrosis. No suspicious soft tissue calcifications. IMPRESSION: Mildly comminuted, depressed fracture of the lateral tibial plateau. Dictated by: Pepito Pantoja M.D. on 01/20/2021 at 13:33 Approved by: Pepito Pantoja M.D. on 01/20/2021 at 13:35
--- NOTE | 2021-01-20 13:51 | ED.LOWEXIN ---
HPI - Extremity Injury (Lower) General Chief Complaint: Extremity Injury, Lower Stated Complaint: dislocated knee or broke RT leg Time Seen by Provider: 01/20/21 13:31 Source: patient Mode of arrival: Wheelchair Limitations: no limitations History of Present Illness HPI Narrative: This is a 35-year-old male comes with complaint of dislocated knee or broken right leg. Patient states he was at work. He was on a 16 ft ladder 2 or 3 rungs from the top when the ladder started to twist. He through the [place]ion[place] far away from himself and the ladder twisted and fell down a hill. Patient states he landed on the ladder on his right knee. He has pain localized to the right knee. He has some mild right hip pain but states he believes this is referred upwards. Has some numbness over the knee itself but denies any numbness or tingling or weakness of the lower leg. Patient denies other injury he denies hitting his head. He states he recalls the fall. No neck or back pain otherwise. He denies any chest pain or shortness of breath. No nausea or vomiting. No other GI or urinary symptoms. Takes duloxetine daily. Denies any other daily medications. No anticoagulants. He does have a history of testicular cancer and had a mildly elevated alpha fetoprotein and was followed by recent surveillance imaging which was negative. Positive for tobacco, occasional alcohol, none today. THC occasionally no other illicit. Related Data Home Medications Medication Instructions Recorded Confirmed Lactobacil.acidophilus-Bifido.animalis 1 cap PO DAILY 07/16/20 10/26/20 5 billion cell sprinkle capsule (Probiotic) magnesium 200 mg tablet 200 mg PO DAILY 12/31/20 12/31/20 zinc 25 mg tablet mg PO 12/31/20 Previous Rx's Medication Instructions Recorded duloxetine 30 mg capsule,delayed 30 mg PO DAILY #90 cap 10/26/20 release Allergies Allergy/AdvReac Type Severity Reaction Status Date / Time Sulfa (Sulfonamide Allergy Unknown Verified 10/26/20 10:22 Antibiotics) [SULFA (SULFONAMIDE ANTIBIOTICS)] Review of Systems Review of Systems ROS Unobtainable: All systems reviewed & are unremarkable except as noted in HPI and below Patient History Medical History Anxiety Chicken pox (~1987) H/O renal calculi (~2014) Testicular cancer (~2004) Varicose vein of leg Surgical History Anesthesia History of lymph node excision (~2004) S/P orchiectomy (~2004) Family History (Updated 06/29/20 @ 20:57 by Humera Conklin) Father Suicide Mother No problems noted. Grandfather Stroke Grandmother Cancer Grandmother Overdose Social History Smoking Status: Current some day smoker alcohol intake: former substance use type: does not use Smoking Status: Current some day smoker alcohol intake frequency: holidays/special occasions only Substance Use Type: marijuana Exam Narrative Exam Narrative: GEN: Patient appears in [id number]-al-[id number] distress. HEAD: No evidence of trauma, no raccoon/Lo sign. NECK: Nontender, painless range of motion, trachea midline Negative Nexus criteria, there is no midline line tenderness, distracting injury, altered mental status, neuro deficit, recent EtOH. EYES: PERRLA, EOMI ENT: External inspection normal, trachea is midline, TM's are normal no hemotypanum, Nares are clear, no septal hematoma, no dental or oral injury, airway is normal and with normal occlusion, No bony tenderness RESP: Chest is nontender and has symmetric movement, no ecchymosis, breath sounds are normal no crackles, wheezes or rales CVS: Heart sounds are normal, no murmur noted, No JVD. ABG/GI: Nontender, soft, normal bowel sounds, no distention, no organomegaly, pelvic rock is negative NEURO: Oriented AOx3, neuro is grossly intact, sensation and motor is normal all 4 extremities moving, cranial nerves II through XII are intact, GCS is 15 PSYCH: Normal mood and affect SKIN: Intact, warm and dry, no crepitus and without decubitus BACK: No CVA tenderness, no vertebral tenderness, no step-off's, no crepitus EXT: Patient has tenderness over the lateral medial plateau of the knee and proximal knee. He has obvious swelling over the lateral superior portion of the knee. Nontender over the patella. He does not have any bony tenderness of the lower leg or up in the hip or thigh. Patient has his knee slightly flexed and does not wish to movement. There is some ecchymosis. Patient is nontender, no pedal edema. N.ormal color and temperature, normal range of motion of all other extremities. 2+ pulses bilateral lower extremities. Initial Vital Signs Initial Vital Signs: Vital Signs Temperature 97.9 F 01/20/21 13:16 Pulse Rate 81 01/20/21 13:16 Respiratory Rate 22 01/20/21 13:16 Blood Pressure 124/75 01/20/21 13:16 Pulse Oximetry 100 01/20/21 13:16 Scores GCS [place] coma scale eye opening: Spontaneous [place] coma scale verbal response: Orientated [place] coma scale motor response: Obey commands [place] coma scale total score: 15 Course Orders Ordered: ED Orders 01/20/21 13:18 XR knee RT 1to2V Stat 01/20/21 15:55 COVID19 - ADMIT (METAL OFF BEARER swab/PCR) Stat Discontinued Medications Morphine Sulfate (Morphine 2 Mg/Ml Inj) 2 mg IV NOW ONE Stop: 01/20/21 16:54 Last Admin: 01/20/21 17:12 Dose: 2 mg Documented by: DEMETRIO Morphine Sulfate (Morphine 4 Mg/Ml Inj) 4 mg IV NOW ONE Stop: 01/20/21 18:26 Last Admin: 01/20/21 18:28 Dose: 4 mg Documented by: Oxycodone/Acetaminophen (Oxycodone/Acetaminophen 5/325 Tablet) 2 tab PO NOW ONE Stop: 01/20/21 14:18 Last Admin: 01/20/21 14:23 Dose: 2 tab Documented by: DEMETRIO Reevaluation(s) Reevaluation #1: On recheck patient feels much better after Percocet. He was up and able to urinate a urinal without assistance. He is in a knee immobilizer continues to be neurovascularly intact. Reevaluation #2: On recheck discussed that orthopedic does recommend transfer to [facility] for compartment checks. Patient is open to S transport. COVID swab is pending. Patient does have some increased pain so IV was placed as he is going to be hospitalized with some pain control. Consultations Consultation #1: Dr. Proctor, discussed he recommends transfer to [facility] for displaced tibial plateau fracture. Would depend on the displacement level of the fracture whether same day or this week. He does not have other options and he would recommend at this time. Time: 14:41 Consultation #2: [facility] ortho-Dr. Courtney with orthopedic surgery. Some they would recommend admission for compartment checks and evaluation and repair summed point. They do ask for PCR COVID testing. Vital Signs Vital signs: Vital Signs - 8 hr 01/20/21 13:16 01/20/21 17:14 Temperature 97.9 F Pulse Rate 81 82 Respiratory Rate 22 16 Blood Pressure 124/75 122/62 Pulse Oximetry 100 98 [facility] - Extremity Injury (Lower) Lab Data Labs: Lab Results 01/20/21 Range/Units 15:55 SARS-CoV-2 (PCR) Negative (Negative) Imaging Data Extremity x-ray #1: Radiologist's Impression: Launch?[place] [address] XRay Report Signed Patient: Chon Barragan MR#: [id number] : 1985 Acct:[id number] Age/Sex: 35 / M Date of Service: 01/20/21 Loc: ED Accession Number: [id number] ?? Procedure: XR knee RT 1to2V Ordering Provider: Hafsa Doherty D.O. PROCEDURE:? XR KNEE RT 1TO2V ? INDICATIONS:? Fall, unable to bear weight ? TECHNIQUE:? 2 views of the knee were acquired.? ? COMPARISON:? None. ? FINDINGS:? ? Bones:? Mildly comminuted , depressed fracture of the lateral tibial plateau.? The remaining visualized osseous structures appear maintained.? Small superior patellar enthesophyte.? ? Soft tissues:? Moderate joint effusion with lipohemarthrosis.? No suspicious soft tissue calcifications.? ? ? IMPRESSION:? Mildly comminuted, depressed fracture of the lateral tibial plateau. ? ? Dictated by: Pepito Pantoja M.D. on 01/20/2021 at 13:33 ? ? Approved by: Pepito Pantoja M.D. on 01/20/2021 at 13:35?? [facility] Narrative Medical decision making narrative: This is a 35-year-old male who had a fall from a ladder. Patient landed on his right knee on top of the metal ladder. He does not appear to have any other injuries at this time and is otherwise medically cleared. He does have a tibial plateau fracture which was discussed with local orthopedic surgery who recommends referral to [facility]. Discussed with Orthopedic surgery at [facility]. They do except for transfer for compartment checks and possible repair and appropriate time frame. Patient PCR covid is negative. Patient feels comfortable with plan all questions asked. Patient given additional dose of pain medication prior to transfer via BLS. Discharge Plan Departure Patient Disposition: [facility] Clinical Impression: Closed fracture of tibial plateau Prescriptions: No Action duloxetine 30 mg capsule,delayed release(DR/EC) 30 mg PO DAILY Qty: 90 RF: 3 Probiotic 5 billion cell Capsule, Sprinkle 1 cap PO DAILY RF: 0 zinc 25 mg Tablet PO RF: 0 magnesium 200 mg Tablet 200 mg PO DAILY RF: 0 Referrals: Naseem Fernández MD [Primary Care Provider] -
[2021-01-20] MEDS: OXYCODONE/ACETAMINOPHEN 5/325 TABLET 2 TAB PO (14:23)
[2021-01-20] MEDS: MORPHINE 2 MG/ML INJ IV (17:12)
[2021-01-20 17:14] VITALS: BP 122/62; PULSE 82; RESP 16; O2SAT 98
[2021-01-20 17:14] LABS: COVID19 - ADMIT (NP swab/PCR) Negative (Negative)
[2021-01-20] MEDS: MORPHINE 4 MG/ML INJ IV (18:28)
== END 2021-01-20 18:37 | disposition short-term general hospital (02) ==
PROVIDERS: Emergency Provider Emergency Medicine; PCP Internal Medicine
DX: S82.141A Displaced bicondylar fracture of right tibia, initial encounter for closed fracture (principal); M25.561 Pain in right knee; Z20.822 Contact with and (suspected) exposure to COVID-19; W11.XXXA Fall on and from ladder, initial encounter; Y99.0 Civilian activity done for income or pay
CPT/HCPCS: 73560; 87635; 96374; 96376; 99284; C9803; J2270

== ENCOUNTER → 2022-07-19 07:02 | Outpatient (CLI) | payer OTHER, SELFPAY ==
[2022-07-19 09:24] LABS: Prostate Specific Antigen Scrn 0.462 ng/mL (0.1-4.0)
[2022-07-27 05:13] LABS: Percent Free Testosterone 1.67 % (1.50-4.20); Testosterone Free 5.51 ng/dL (5.00-21.00); Testosterone Total 330.1 ng/dL (264.0-916.0)
== END ==
PROVIDERS: PCP Internal Medicine; Referring Provider Internal Medicine Endocrinology, Diabetes & Metabolism; Visit Provider Internal Medicine Endocrinology, Diabetes & Metabolism
DX: R79.89 Other specified abnormal findings of blood chemistry (principal)
CPT/HCPCS: 36415; 84402; 84403; G0103

== ENCOUNTER → 2022-09-06 07:09 | Outpatient (CLI) | payer OTHER, SELFPAY ==
[2022-09-06 07:54] LABS: Add Manual Diff / Slide Review NO; Basophils Absolute Auto 100 /uL (0-100); Basophils Percent Auto 1.1 % (0-2); Eosinophils Absolute Auto 100 /uL (0-450); Eosinophils Percent Auto 1.5 % (2-4); Hematocrit 42.5 % (41-53); Hemoglobin 14.5 g/dL (13.5-17.5); Lymphocytes Absolute Auto 2400 /uL (1100-4500); Lymphocytes Percent Auto 39.8 % (25-40); Mean Corpuscular HGB Conc 34.2 % (30-36); Mean Corpuscular Hemoglobin 30.3 PG (26-34); Mean Corpuscular Volume 88.6 fL (80-100); Monocytes Absolute Auto 600 /uL (0-900); Monocytes Percent Auto 10.2 % (3-14); Neutrophils Absolute Auto 2800 /uL (1500-7000); Neutrophils Percent Auto 47.4 % (50-75); Platelet Count 210 X10^3/uL (150-400); Red Blood Cell Count 4.79 X10^6/uL (4.5-5.9); Red Cell Distribution Width 13.5 % (11.6-14.8)
[2022-09-06 08:28] LABS: Alanine Aminotransferase 25 IU/L (<50); Albumin Globulin Ratio 1.5 (1.0-2.8); Alkaline Phosphatase 52 U/L (38-126); Aspartate Aminotransferase 23 IU/L (17-59); BUN Creatinine Ratio 16.9 (6-22); Bilirubin Total 0.5 mg/dL (0.2-1.3); Blood Urea Nitrogen 13 mg/dL (9-20); Calcium 9.1 mg/dL (8.4-10.2); Carbon Dioxide 27 mmol/L (22-32); Chloride 105 mmol/L (98-107); Estimated Glomerular Filt Rate > 60 mL/min (>60); Globulin 2.6 g/dL (1.7-4.1); Glucose 92 mg/dL (70-100); Potassium 4.3 mmol/L (3.4-5.1); Sodium 138 mmol/L (137-145); Total Protein 6.6 g/dL (6.3-8.2)
[2022-09-06 08:46] LABS: HCG Quantitative /Beta subunit < 2.4 mIU/mL (<2.40); HEMOLYSIS < 15 (0-50)
[2022-09-07 07:32] LABS: Alpha Fetoprotein 9.4 ng/mL (0.0-6.9)
== END ==
PROVIDERS: Internal Medicine Hematology & Oncology; PCP Internal Medicine; Referring Provider Internal Medicine Endocrinology, Diabetes & Metabolism; Visit Provider Internal Medicine Endocrinology, Diabetes & Metabolism
DX: C62.90 Malignant neoplasm of unspecified testis, unspecified whether descended or undescended (principal); R79.89 Other specified abnormal findings of blood chemistry
CPT/HCPCS: 80053; 82105; 84702; 85025

== ENCOUNTER → 2022-10-08 10:27 | Outpatient (CLI) | payer OTHER, SELFPAY ==
--- NOTE | 2022-10-08 10:29 | DI.CT.S_ITS ---
PROCEDURE: CT ABDOMEN PELVIS W CON INDICATIONS: testicular cancer TECHNIQUE: After the administration of oral and intravenous contrast, axial sections were acquired from the lung bases to the pubic symphysis. Coronal and sagittal reformats were performed. For radiation dose reduction, the following was used: automated exposure control, adjustment of mA and/or kV according to patient size. COMPARISON:[facility], CT, CT ABDOMEN PELVIS W CON, 09/01/2020, 13:26. FINDINGS: Image quality: Excellent. Lung bases: Unremarkable. Heart: No significant findings. ABDOMEN: Liver: Unremarkable. Gallbladder: Unremarkable. Biliary ducts: No intrahepatic or extrahepatic biliary ductal dilatation identified. Pancreas: Homogeneous enhancement without focal lesions or pancreatic ductal dilatation. No peripancreatic inflammation or organized fluid collections. Spleen: No splenomegaly Adrenal Glands: Unremarkable. Kidneys and Ureters: Kidneys are symmetric in size and enhancement, and there is no obstructive uropathy. No perinephric inflammatory changes. Ureters are normal in course and caliber. Stomach and Bowel: Stomach, small bowel loops, and colon are unremarkable. Normal appendix. Peritoneum: No abnormal intraperitoneal fluid. No free air. Ventral Wall: No hernia. Abdominal Nodes: Stable postsurgical changes within the retroperitoneum compatible with prior lymph node resection. No retroperitoneal or mesenteric adenopathy by size criteria. Vessels: Aorta and inferior vena cava are normal in size. PELVIS: Pelvic Organs: Unremarkable. Bladder: Urinary bladder thickness appears normal for degree of distention. No perivesicular inflammatory stranding. Pelvic Nodes: No enlarged lymph nodes. Miscellaneous: No inguinal hernias are seen. Partially imaged superficial varices involving the anterior thigh bilaterally, more pronounced on the right. Bones: Visualized osseous structures appear intact without acute fracture or focal destructive lesion. No acute compression fractures of the imaged spine. IMPRESSION: CT abdomen and pelvis without acute abnormalities. No evidence for adenopathy or metastatic disease. Dictated by: Donovan Nixon M.D. on 10/08/2022 at 20:18 Approved by: Donovan Nixon M.D. on 10/08/2022 at 20:25
--- NOTE | 2022-10-08 10:29 | DI.MRI.S_ITS ---
PROCEDURE: MR BRAIN (PITUITARY) WWO CON INDICATIONS: high PRL and hypogonadonism TECHNIQUE: Noncontrast sagittal and axial FLAIR, axial gradient echo, axial diffusion and ADC through the brain. Thin-slice sagittal and coronal T1 spin echo, coronal T2 fast spin echo through the pituitary. After the administration contrast, optional dynamic coronal T1 spin echo, thin-slice coronal and sagittal T1 spin echo images through the pituitary fossa; axial and coronal and sagittal T1 spin echo with fat saturation through the brain. COMPARISON: None. FINDINGS: Image quality: Excellent. Pituitary Gland: The pituitary gland is normal in size and appearance. The pituitary stalk is midline. No pituitary masses are identified. CSF Spaces: Ventricles are normal in size and shape. Basal cisterns are patent. No extra-axial fluid collections. Brain: No intracranial bleeds or mass effects. No abnormal intracranial enhancement. Jerez-white matter interface is intact. Diffusion weighted images demonstrate no acute ischemic insults. Brainstem is normal. Normal intravascular flow voids are present. Skull and face: Calvarial marrow is normal in signal. Orbits appear normal. Sinuses: Sinuses and mastoids are clear. IMPRESSION: Normal appearance of the pituitary gland without evidence of pituitary mass. Dictated by: Kenan Kurtz M.D. on 10/10/2022 at 9:21 Approved by: Kenan Kurtz M.D. on 10/10/2022 at 9:35
== END ==
PROVIDERS: PCP Internal Medicine; Referring Provider Internal Medicine Hematology & Oncology; Visit Provider Internal Medicine Hematology & Oncology
DX: C62.90 Malignant neoplasm of unspecified testis, unspecified whether descended or undescended (principal); R79.89 Other specified abnormal findings of blood chemistry; E23.0 Hypopituitarism
CPT/HCPCS: 70553; 74177; Q9967

== ENCOUNTER → 2022-12-31 08:33 | Outpatient (CLI) | payer OTHER, SELFPAY ==
[2022-12-31 09:32] LABS: Hematocrit 44.3 % (41-53); Hemoglobin 15.1 g/dL (13.5-17.5)
[2023-01-08 13:40] LABS: Testosterone Free 24.19 ng/dL (5.00-21.00); Testosterone Total 604.8 ng/dL (264.0-916.0)
== END ==
PROVIDERS: PCP Internal Medicine; Referring Provider Internal Medicine Endocrinology, Diabetes & Metabolism; Visit Provider Internal Medicine Endocrinology, Diabetes & Metabolism
DX: R79.89 Other specified abnormal findings of blood chemistry (principal)
CPT/HCPCS: 36415; 84402; 84403; 85014; 85018

== ENCOUNTER → 2023-01-07 08:40 | Outpatient (CLI) | payer OTHER, SELFPAY ==
[2023-01-07 10:38] LABS: Add Manual Diff / Slide Review NO; Basophils Absolute Auto 100 /uL (0-100); Basophils Percent Auto 1.1 % (0-2); Eosinophils Absolute Auto 100 /uL (0-450); Eosinophils Percent Auto 1.8 % (2-4); Hematocrit 43.3 % (41-53); Hemoglobin 14.8 g/dL (13.5-17.5); Lymphocytes Absolute Auto 2600 /uL (1100-4500); Lymphocytes Percent Auto 44.5 % (25-40); Mean Corpuscular HGB Conc 34.3 % (30-36); Mean Corpuscular Hemoglobin 30.7 PG (26-34); Mean Corpuscular Volume 89.6 fL (80-100); Monocytes Absolute Auto 500 /uL (0-900); Monocytes Percent Auto 9.2 % (3-14); Neutrophils Absolute Auto 2500 /uL (1500-7000); Neutrophils Percent Auto 43.4 % (50-75); Platelet Count 214 X10^3/uL (150-400); Red Blood Cell Count 4.83 X10^6/uL (4.5-5.9); Red Cell Distribution Width 13.2 % (11.6-14.8); White Blood Cell Count 5.8 X10^3/uL (4.5-11.0)
[2023-01-07 11:20] LABS: Testosterone 693 ng/dL (132-813)
[2023-01-17 00:09] LABS: Percent Free Testosterone 3.93 % (1.50-4.20); Testosterone Total 684.6 ng/dL (264.0-916.0)
== END ==
PROVIDERS: PCP Internal Medicine; Referring Provider Internal Medicine Endocrinology, Diabetes & Metabolism; Visit Provider Internal Medicine Endocrinology, Diabetes & Metabolism
DX: R79.89 Other specified abnormal findings of blood chemistry (principal)
CPT/HCPCS: 36415; 84402; 84403; 85025

== ENCOUNTER → 2023-03-07 16:23 | Outpatient (CLI) | payer OTHER, SELFPAY ==
[2023-03-07 16:54] LABS: Add Manual Diff / Slide Review NO; Basophils Absolute Auto 100 /uL (0-100); Basophils Percent Auto 0.8 % (0-2); Eosinophils Absolute Auto 100 /uL (0-450); Eosinophils Percent Auto 1.1 % (2-4); Hematocrit 43.7 % (41-53); Hemoglobin 14.8 g/dL (13.5-17.5); Lymphocytes Absolute Auto 2800 /uL (1100-4500); Lymphocytes Percent Auto 33.5 % (25-40); Mean Corpuscular HGB Conc 33.9 % (30-36); Mean Corpuscular Hemoglobin 30.3 PG (26-34); Mean Corpuscular Volume 89.4 fL (80-100); Monocytes Absolute Auto 800 /uL (0-900); Monocytes Percent Auto 9.5 % (3-14); Neutrophils Absolute Auto 4500 /uL (1500-7000); Neutrophils Percent Auto 55.1 % (50-75); Platelet Count 224 X10^3/uL (150-400); Red Blood Cell Count 4.89 X10^6/uL (4.5-5.9); Red Cell Distribution Width 13.5 % (11.6-14.8); White Blood Cell Count 8.3 X10^3/uL (4.5-11.0)
== END ==
PROVIDERS: PCP Internal Medicine; Referring Provider Physician Assistant; Visit Provider Physician Assistant
DX: R22.2 Localized swelling, mass and lump, trunk (principal)
CPT/HCPCS: 36415; 85025

== ENCOUNTER → 2023-03-22 12:11 | Outpatient (CLI) | payer OTHER, SELFPAY ==
--- NOTE | 2023-03-22 12:13 | DI.US.S_ITS ---
PROCEDURE: US SOFT TISSUE HEAD AND NECK INDICATIONS: RIGHT UPPER CHEST MASS TECHNIQUE: Real-time scanning was performed of the neck region of interest, with image documentation. COMPARISON: None. FINDINGS: At the area of interest inferior to the right clavicle medially, there is a 0.6 x 0.5 x 0.4 cm subcutaneous nodular density with internal echoes but no associated vascularity IMPRESSION: Well-defined subcutaneous probable sebaceous cyst Approved by: Caio Rollins M.D. on 03/22/2023 at 17:50
== END ==
PROVIDERS: PCP Internal Medicine; Referring Provider Physician Assistant; Visit Provider Physician Assistant
DX: R22.2 Localized swelling, mass and lump, trunk (principal)
CPT/HCPCS: 76536

== ENCOUNTER → 2023-10-02 15:05 | Outpatient (CLI) | payer OTHER, SELFPAY ==
[2023-10-02 15:51] LABS: Add Manual Diff / Slide Review NO; Basophils Absolute Auto 100 /uL (0-100); Basophils Percent Auto 0.7 % (0-2); Eosinophils Absolute Auto 100 /uL (0-450); Eosinophils Percent Auto 1.1 % (2-4); Hematocrit 44.9 % (41-53); Hemoglobin 15.4 g/dL (13.5-17.5); Lymphocytes Absolute Auto 2600 /uL (1100-4500); Lymphocytes Percent Auto 32.1 % (25-40); Mean Corpuscular HGB Conc 34.3 % (30-36); Mean Corpuscular Hemoglobin 30.4 PG (26-34); Mean Corpuscular Volume 88.7 fL (80-100); Monocytes Absolute Auto 700 /uL (0-900); Monocytes Percent Auto 8.2 % (3-14); Neutrophils Absolute Auto 4700 /uL (1500-7000); Neutrophils Percent Auto 57.9 % (50-75); Platelet Count 238 X10^3/uL (150-400); Red Blood Cell Count 5.07 X10^6/uL (4.5-5.9); Red Cell Distribution Width 13.5 % (11.6-14.8); White Blood Cell Count 8.2 X10^3/uL (4.5-11.0)
[2023-10-02 15:53] LABS: Hematocrit 44.7 % (41-53); Hemoglobin 15.5 g/dL (13.5-17.5)
[2023-10-02 16:38] LABS: Alanine Aminotransferase 41 IU/L (<50); Albumin 4.6 g/dL (3.5-5.0); Albumin Globulin Ratio 1.5 (1.0-2.8); Alkaline Phosphatase 60 U/L (38-126); Aspartate Aminotransferase 45 IU/L (17-59); Bilirubin Total 0.8 mg/dL (0.2-1.3); Blood Urea Nitrogen 10 mg/dL (9-20); Calcium 9.2 mg/dL (8.4-10.2); Carbon Dioxide 26 mmol/L (22-32); Chloride 108 mmol/L (98-107); Estimated Glomerular Filt Rate > 60 mL/min (>60); Globulin 3.1 g/dL (1.7-4.1); Glucose 88 mg/dL (70-100); Lactate Dehydrogenase 184 U/L (120-246); Potassium 4.2 mmol/L (3.4-5.1); Sodium 140 mmol/L (137-145); Total Protein 7.7 g/dL (6.3-8.2)
[2023-10-02 16:57] LABS: Prostate Specific Antigen 0.465 ng/mL (0.10-4.00)
[2023-10-02 16:59] LABS: Testosterone 875 ng/dL (132-813)
[2023-10-02 17:05] LABS: HCG Quantitative /Beta subunit < 2.39 mIU/mL (<2.40); HEMOLYSIS < 15 (0-50); Prolactin 32.6 ng/mL (3.7-17.9)
[2023-10-03 07:36] LABS: Alpha Fetoprotein 7.5 ng/mL (0.0-6.9)
== END ==
PROVIDERS: Internal Medicine Hematology & Oncology; PCP Internal Medicine; Referring Provider Internal Medicine Endocrinology, Diabetes & Metabolism; Visit Provider Internal Medicine Endocrinology, Diabetes & Metabolism
DX: R79.89 Other specified abnormal findings of blood chemistry (principal); E23.0 Hypopituitarism; C62.90 Malignant neoplasm of unspecified testis, unspecified whether descended or undescended
CPT/HCPCS: 36415; 80053; 82105; 83615; 84146; 84153; 84403; 84702; 85014; 85018; 85025

== ENCOUNTER → 2024-09-17 15:59 | Outpatient (CLI) | payer OTHER, SELFPAY ==
[2024-09-17 16:39] LABS: Add Manual Diff / Slide Review NO; Basophils Absolute Auto 100 /uL (0-100); Basophils Percent Auto 0.8 % (0-2); Eosinophils Absolute Auto 100 /uL (0-450); Eosinophils Percent Auto 1.7 % (2-4); Hematocrit 45.9 % (41-53); Hemoglobin 15.6 g/dL (13.5-17.5); Lymphocytes Absolute Auto 2800 /uL (1100-4500); Mean Corpuscular Hemoglobin 30.5 PG (26-34); Mean Corpuscular Volume 89.5 fL (80-100); Monocytes Absolute Auto 800 /uL (0-900); Monocytes Percent Auto 9.9 % (3-14); Neutrophils Absolute Auto 4400 /uL (1500-7000); Neutrophils Percent Auto 53.6 % (50-75); Platelet Count 227 X10^3/uL (150-400); Red Blood Cell Count 5.12 X10^6/uL (4.5-5.9); Red Cell Distribution Width 13.6 % (11.6-14.8); White Blood Cell Count 8.2 X10^3/uL (4.5-11.0)
[2024-09-17 17:43] LABS: Prolactin 26.9 ng/mL (3.7-17.9)
[2024-09-17 17:59] LABS: Testosterone 220 ng/dL (132-813)
== END ==
LOC: LAB 16:02
PROVIDERS: PCP Internal Medicine; Referring Provider Internal Medicine Endocrinology, Diabetes & Metabolism; Visit Provider Internal Medicine Endocrinology, Diabetes & Metabolism
DX: E22.1 Hyperprolactinemia (principal); R79.89 Other specified abnormal findings of blood chemistry
CPT/HCPCS: 36415; 84146; 84403; 85025